=== PATIENT | male | born 1935 | race Two or more races ===

== ENCOUNTER 2017-07-01 11:49 | Day surgery (SDC) | payer MEDICARE, OTHER ==
[~2017-07-01] VITALS: Ht 175.3 cm; Wt 129.1 kg
[~2017-07-01 11:49] MED LIST: ADV25050; AMLO1TAB; ATOR20TA17; BISA-34; DUTA0.5C; RABE20TA5; RTPRO5
[2017-07-01 12:39] VITALS: Ht 175.3 cm; Wt 129.1 kg
[2017-07-01] MEDS ORDERED: FURO40TA4 PO (12:54)
[2017-07-01] MEDS ORDERED: METF1000 PO (12:54)
[2017-07-01] MEDS ORDERED: LINACLOTIDE (12:54)
[2017-07-01] MEDS ORDERED: LOSARTAN (12:54)
[2017-07-01] MEDS ORDERED: DONEPEZIL (12:54)
[2017-07-01] MEDS ORDERED: ALFU10TA2 PO (12:54)
[2017-07-01] MEDS ORDERED: LABETALOL HCL 20MG INJ ONE (13:41)
[2017-07-01] MEDS ORDERED: LIDOCAINE 2% (SDV) 5 ML INJ ONE (13:41)
[2017-07-01] MEDS ORDERED: PROPOFOL 20 ML ONE (13:41)
[2017-07-01 13:46] VITALS: BP 177/84; PULSE 68; RESP 15
[2017-07-01] MEDS ORDERED: hydrALAzine 20 MG INJ ONE (14:11)
--- NOTE | 2017-07-01 14:59 | OPPN ---
Date/Time of Note Date/Time of Note DATE: 07/01/17 TIME: 14:56 Operative Report Preoperative Diagnosis Abdominal pain Change in bowel habit History of colon polyps Postoperative Diagnosis Gastritis with erosions 3 small colon polyps removed Internal hemorrhoids Operation/Procedure Performed Esophagogastroduodenoscopy and biopsy Colonoscopy and biopsy Provider: KAREN DIA MD Anesthesia Type: MAC Estimated blood loss: none Transfusion Required: no Specimens Gastric mucosal biopsy Colon polyps Grafts/Implants: none Complications: no KAREN DIA MD Jul 01, 2017 14:59
[2017-07-01 15:25] VITALS: BP 164/75; PULSE 78; RESP 14
--- NOTE | 2017-07-01 19:57 | GILP ---
DATE OF PROCEDURE: 07/01/2017 PROCEDURE PERFORMED: 1. Esophagogastroduodenoscopy and biopsy. 2. Colonoscopy and biopsy. SURGEON: Uvaldo Adrian MD. PREOPERATIVE DIAGNOSES: 1. Abdominal pain. 2. Change in bowel habits. 3. History of colon polyps. POSTOPERATIVE DIAGNOSES: 1. Hiatal hernia. 2. Gastroesophageal reflux disease. 3. Gastritis with erosions. 4. Gastric mucosal biopsies were taken for Helicobacter pylori test. 5. Colonoscopy all the way to the cecum. 6. Three small colon polyps were removed. 7. Internal hemorrhoids. INDICATION: Mr. Morgan Frank is an 82-year-old male patient who had upper abdominal pain not responding to therapy. He also noticed change in the bowel habits. He had a history of colon polyps. The patient was scheduled for endoscopy and colonoscopy for further evaluation. The procedures and possible complications were well explained to the patient. He understood and consented to the procedures. DESCRIPTION OF PROCEDURE: Under the influence of anesthesia, the gastroscope was carefully introduced into the esophagus. Under direct vision, it was advanced to the stomach, into the pylorus, the duodenal bulb, and the descending duodenum. Findings: Esophagus: The patient had hiatal hernia and gastroesophageal reflux disease. Stomach: He had gastritis with erosions. Gastric mucosal biopsies were taken for H. pylori test. Duodenum was normal. The colonoscope was carefully introduced in the rectum. Under direct vision, it was advanced all the way to the cecum. Findings: Patient had 3 small colon polyps, and they were removed using biopsy forceps. He had internal hemorrhoids. He tolerated the procedures very well. There were no complication from the procedures. At the end of the procedures, he was awake, with stable vital signs, and he was discharged home in the care of his family. IMPRESSION: 1. Hiatal hernia. 2. Gastroesophageal reflux disease. 3. Gastritis with erosions. 4. Gastric mucosal biopsies were taken for Helicobacter pylori test. 5. Colonoscopy all the way to the cecum. 6. Three small colon polyps were removed. 7. Internal hemorrhoids. PLAN: 1. Nexium 40 mg p.o. q.a.m. 2. Continue Linzess. 3. Await histopathology reports. 4. Because of the patient's age, he will not need another screening colonoscopy. Dictated By: MD ALEX Garcia/robb/edwin /Document#: [id number] CC: Uvaldo Adrian MD;*[facility]*
== END 2017-07-01 16:21 | disposition home or self-care (01) ==
LOC: GIL 11:49
PROVIDERS: ATTEND Internal Medicine Gastroenterology
DX: R19.4 Change in bowel habit (principal); K44.9 Diaphragmatic hernia without obstruction or gangrene; K21.9 Gastro-esophageal reflux disease without esophagitis; K29.60 Other gastritis without bleeding; D12.6 Benign neoplasm of colon, unspecified; K64.8 Other hemorrhoids; E11.9 Type 2 diabetes mellitus without complications; I10 Essential (primary) hypertension; E78.5 Hyperlipidemia, unspecified
CPT/HCPCS: 43239; 45380; 82962; 87081; 88305; J0360